=== PATIENT | female | born 1950 | race African-American/Black ===

== ENCOUNTER → 2017-01-08 | Outpatient (CLI) | payer MEDICARE ==
[2015-07-29 10:57] VITALS: BP 129/53
[~2017-01-08] MED LIST: ALPR0.254 PO; CYCL10TA2 PO; CYCL7.5T PO; FURO-68 PO; FURO-69 PO; HYDR-2678 PO; LEVO500T38 PO; LIDO700A4 TP; METO2.5T5 PO; METR500T PO; POTA10TA PO; POTA20TA84 PO; SPIR25TA PO; SPIR50TA2 PO; TIZA2CAP PO
--- NOTE | 2017-01-08 16:06 | RAD ---
DATE: 01/08/2017 EXAM: DIGITAL SCREEN BILAT W/CAD HISTORY: Routine screening COMPARISON: 11/09/2012 This study was interpreted with the benefit of Computerized Aided Detection (CAD). FINDINGS: There are scattered fibroglandular densities in the breasts. There is a stable nodule in the lateral aspect of the right breast. No new or enlarging breast densities are seen. Benign type calcifications are evident. No suspicious microcalcifications have developed. IMPRESSION: Stable mammograms without evidence of malignancy. BI-RADS CATEGORY: 2 BENIGN FINDING(S) RECOMMENDED FOLLOW-UP: 12M 12 MONTH FOLLOW-UP PQRS compliance statement: Patient information was entered into a reminder system with a target due date for the next mammogram. Mammography is a sensitive method for finding small breast cancers, but it does not detect them all and is not a substitute for careful clinical examination. A negative mammogram does not negate a clinically suspicious finding and should not result in delay in biopsying a clinically suspicious abnormality. "Our facility is accredited by the [employer] Mammography Program."
== END | disposition home or self-care (01) ==
LOC: MAMMO 15:20
PROVIDERS: ATTEND Pediatrics
DX: Z12.31 Encounter for screening mammogram for malignant neoplasm of breast (principal)
CPT/HCPCS: G0202; 77067

== ENCOUNTER 2017-11-14 12:02 | Emergency (ER) | payer OTHER ==
[2017-11-14] MEDS: ONDANSETRON ODT 4 MG TAB.RAPDIS. PO ×2 (12:48)
[2017-11-14] MEDS: ACETAMINOPHEN 500 MG TABLET PO ×2 (12:48)
[2017-11-14 13:40] LABS: AGAP ISTAT 18 mmol/L (6-14); BUN ISTAT 14 mg/dL (8-26); CHLORIDE ISTAT 101 mmol/L (98-110); CREATININE ISTAT 0.9 mg/dL (0.5-1.4); GLUCOSE ISTAT 145 mg/dL (70-99); HEMATOCRIT ISTAT 38 % (36-40); HEMOGLOBIN ISTAT 12.9 g/dL (12-15); ION CA ISTAT 1.13 mmol/L (1.13-1.32); POTASSIUM ISTAT 3.8 mmol/L (3.5-5.0); SODIUM ISTAT 139 mmol/L (135-145); TOT CO2 ISTAT 24 mmol/L (23-32)
== END 2017-11-14 13:58 | disposition home or self-care (01) ==
LOC: ER 12:02
DX: R51 Headache (principal); E87.8 Other disorders of electrolyte and fluid balance, not elsewhere classified; I10 Essential (primary) hypertension; E11.9 Type 2 diabetes mellitus without complications; F32.9 Major depressive disorder, single episode, unspecified; Z88.2 Allergy status to sulfonamides; Z88.5 Allergy status to narcotic agent; Z88.8 Allergy status to other drugs, medicaments and biological substances
CPT/HCPCS: 36415; 70450; 80047; 85014; 85018; 93005; 99284-25; Q0162

== ENCOUNTER → 2017-12-01 | Outpatient (CLI) | payer OTHER ==
[2017-12-01] MEDS: IOHEXOL 300 MG/ML 100ML VIAL. IV ×2 (15:40)
== END | disposition home or self-care (01) ==
LOC: US 14:57
DX: K76.0 Fatty (change of) liver, not elsewhere classified (principal); R91.8 Other nonspecific abnormal finding of lung field; R16.0 Hepatomegaly, not elsewhere classified; Z87.891 Personal history of nicotine dependence
CPT/HCPCS: 71260; 76700; Q9967

== ENCOUNTER → 2018-01-11 | Outpatient (CLI) | payer OTHER | END | disposition home or self-care (01) | LOC: MAMMO 12:48 | DX: Z12.31 Encounter for screening mammogram for malignant neoplasm of breast (principal) | CPT/HCPCS: 77067 ==

== ENCOUNTER → 2018-09-28 | Outpatient (CLI) | payer OTHER ==
[2017-11-14 12:11] VITALS: BP 129/82
[~2018-09-28] MED LIST changes: -LEVO500T38 PO; +LEVO500T59 PO; -SPIR50TA2 PO; +SPIR50TA4 PO
--- NOTE | 2018-09-28 16:13 | RAD ---
Examination: CT chest without contrast HISTORY: History of lung nodule follow-up COMPARISON: 12/01/2017 TECHNIQUE: Axial CT images of chest were performed without contrast. Coronal and sagittal reformats are performed. Exposure: One or more of the following individualized dose reduction techniques were utilized for this examination: 1. Automated exposure control 2. Adjustment of the mA and/or kV according to patient size 3. Use of iterative reconstruction technique FINDINGS: The visualized thyroid gland grossly appears unremarkable. The central airways are patent. The heart size grossly appears unremarkable. Coronary artery calcifications identified. There is a 7 mm nodule identified in the left upper lobe of the lung, similar to prior exam. There is a small 5 mm pleural-based nodule identified in the left lower lobe of the lung. There is a 5 mm nodule identified in the right middle lobe of the lung. No evidence of pleural effusion or pneumothorax. There is diffuse decreased attenuation noted in the liver likely hepatic steatosis. The visualized spleen, adrenals grossly appears unremarkable. Mild degenerative changes thoracic spine. IMPRESSION: 1. Bilateral lung nodules with the largest measuring 7 mm in the left upper lobe of the lungs similar to prior exam. 2. Hepatic steatosis. 3. Coronary artery calcifications. Electronically signed by: Edy Bucio MD (09/28/2018 4:10 PM) [id number]
== END | disposition home or self-care (01) ==
LOC: CT 15:41
PROVIDERS: ATTEND Family Medicine
DX: K76.0 Fatty (change of) liver, not elsewhere classified (principal); I25.10 Atherosclerotic heart disease of native coronary artery without angina pectoris; R91.8 Other nonspecific abnormal finding of lung field
CPT/HCPCS: 71250

== ENCOUNTER 2019-01-24 01:10 | Inpatient (IN) | payer MEDICARE ==
[~2019-01-24] VITALS: Ht 175.3 cm; Wt 92.1 kg
[2019-01-24] MEDS ORDERED: ASPIRIN 325 MG TABLET PO ONE (01:30)
[2019-01-24 01:38] LABS: BASO # 0.1 x10^3/uL (0.0-0.2); BASO % 1 % (0-3); EOS # 0.1 x10^3/uL (0.0-0.7); EOS % 1 % (0-3); HEMATOCRIT 38.6 % (36.0-47.0); HEMOGLOBIN 12.9 g/dL (12.0-15.5); LYMPH # 3.2 x10^3/uL (1.0-4.8); LYMPH % 31 % (24-48); MEAN CORPUSCULAR HEMOGLOBIN 28 pg (25-35); MEAN CORPUSCULAR HGB CONC 33 g/dL (31-37); MEAN CORPUSCULAR VOLUME 83 fL (79-100); MONO # 0.6 x10^3/uL (0.0-1.1); MONO % 6 % (0-9); NEUT # 6.3 x10^3uL (1.8-7.7); NEUT % 61 % (31-73); PLATELET COUNT 277 x10^3/uL (140-400); RED BLOOD COUNT 4.63 x10^6/uL (3.50-5.40); RED CELL DISTRIBUTION WIDTH 15.5 % (11.5-14.5); WHITE BLOOD COUNT 10.4 x10^3/uL (4.0-11.0)
[2019-01-24 01:47] LABS: PROTHROMBIN TIME PATIENT 12.9 SEC (11.7-14.0)
[2019-01-24 01:48] LABS: CALCIUM 8.6 mg/dL (8.5-10.1); GFR 66.9; POTASSIUM 3.6 mmol/L (3.5-5.1)
[2019-01-24 01:53] LABS: ALBUMIN 3.7 g/dL (3.4-5.0); ALBUMIN/GLOBULIN RATIO 0.9 (1.0-1.7); MAGNESIUM 1.9 mg/dL (1.8-2.4); TOTAL BILIRUBIN 0.4 mg/dL (0.2-1.0); TOTAL PROTEIN 7.7 g/dL (6.4-8.2)
[2019-01-24] MEDS ORDERED: DEXTROSE 50% 25 GM / 50ML DISP.SYRIN. IV PRN (02:00)
[2019-01-24] MEDS ORDERED: ONDANSETRON PF 4 MG/2 ML VIAL. IV PRN (02:00)
[2019-01-24] MEDS ORDERED: fentaNYL PF VIAL 100 MCG/2 ML VIAL IV PRN (02:00)
--- NOTE | 2019-01-24 02:07 | PHYS DOC ---
Past Medical History Past Medical History: Depression, Diabetes-Type II, GERD, High Cholesterol, Hypertension, Other Additional Past Medical Histor: Syncope Past Surgical History: Hysterectomy, Other Additional Past Surgical Histo: carpal tunnel, ganglion cyst Alcohol Use: None Drug Use: None Adult General Chief Complaint Chief Complaint: CHEST PAIN HPI HPI Patient is a 68 year old female with previous history of DVT who presents with chest pain. The chest pain is located substernally and radiates into her left arm. She describes it as sharp in nature and rates it as a 5/10 right now. She says the pain has been intermittent throughout the day, but cannot pinpoint anything that makes her pain worse or better. She attempted to take a muscle relaxant this evening, but it did not relieve her pain. Patient denies any dizziness, nausea, vomiting, unilateral leg swelling, pleuritic chest pain, or shortness of breath. Denies trauma. Denies fever/chills. Review of Systems Review of Systems Constitutional: Denies fever or chills [] Eyes: Denies redness or eye pain [] HENT: Denies nasal congestion or sore throat [] Respiratory: Denies cough or shortness of breath [] Cardiovascular: Reports sharp substernal chest pain, denies palpitations or irregular heart beats [] GI: Denies abdominal pain, nausea, vomiting [] : Denies dysuria or hematuria [] Musculoskeletal: Denies back pain or joint pain [] Integument: Denies rash or skin lesions [] Neurologic: Denies headache or focal weakness[] Complete systems were reviewed and found to be within normal limits, except as documented in this note. Current Medications Current Medications Current Medications Medications (Trade) Dose Ordered Sig/[facility] Start Time Stop Time Status Last Admin Dose Admin Aspirin (Lobo Aspirin) 325 mg 1X ONCE 01/24/19 01:30 01/24/19 01:31 DC 01/24/19 01:32 325 MG Allergies Allergies Allergies Coded Allergies Type Severity Reaction Last Updated Verified Sulfa (Sulfonamide Antibiotics) Allergy Severe Rash 06/10/14 Yes codeine Allergy Severe itching 07/25/15 Yes warfarin Allergy Intermediate Rash 06/10/14 Yes hydrocodone Allergy Unknown Swelling 07/27/15 Yes Physical Exam Physical Exam Constitutional: No acute distress, non-toxic appearance. [] HENT: Normocephalic, atraumatic, bilateral external ears normal, nose normal. [] Eyes: EOMI, conjunctiva normal, no discharge. [] Neck: Normal range of motion, no tenderness, supple. [] Cardiovascular:Heart rate regular rhythm, no pain with palpation [] Lungs & Thorax: Bilateral breath sounds clear to auscultation, no rhonchi, rales or wheezes [] Abdomen: Soft, no tenderness, no rebound, rigidity, or guarding. [] Skin: Warm, dry, no rash. [] Back: No tenderness, no CVA tenderness. [] Extremities: No cyanosis, no clubbing, trace bilateral pretibial edema. [] Neurologic: Alert and oriented X 3, no focal deficits noted. [] Psychologic: Affect normal, mood normal. [] Current Patient Data Vital Signs Vital Signs Date Time Temp Pulse Resp B/P (MAP) Pulse Ox O2 Delivery O2 Flow Rate FiO2 01/24/19 01:20 98.0 78 20 158/74 (102) 98 Room Air 98.0 Lab Values Laboratory Tests Test 01/24/19 01:27 White Blood Count 10.4 x10^3/uL (4.0-11.0) Red Blood Count 4.63 x10^6/uL (3.50-5.40) Hemoglobin 12.9 g/dL (12.0-15.5) Hematocrit 38.6 % (36.0-47.0) Mean Corpuscular Volume 83 fL (79-100) Mean Corpuscular Hemoglobin 28 pg (25-35) Mean Corpuscular Hemoglobin Concent 33 g/dL (31-37) Red Cell Distribution Width 15.5 % (11.5-14.5) H Platelet Count 277 x10^3/uL (140-400) Neutrophils (%) (Auto) 61 % (31-73) Lymphocytes (%) (Auto) 31 % (24-48) Monocytes (%) (Auto) 6 % (0-9) Eosinophils (%) (Auto) 1 % (0-3) Basophils (%) (Auto) 1 % (0-3) Neutrophils # (Auto) 6.3 x10^3uL (1.8-7.7) Lymphocytes # (Auto) 3.2 x10^3/uL (1.0-4.8) Monocytes # (Auto) 0.6 x10^3/uL (0.0-1.1) Eosinophils # (Auto) 0.1 x10^3/uL (0.0-0.7) Basophils # (Auto) 0.1 x10^3/uL (0.0-0.2) Prothrombin Time 12.9 SEC (11.7-14.0) Prothrombin Time INR 1.0 (0.8-1.1) D-Dimer (Yesica) 0.31 ug/mlFEU (0.00-0.50) Sodium Level 139 mmol/L (136-145) Potassium Level 3.6 mmol/L (3.5-5.1) Chloride Level 101 mmol/L (98-107) Carbon Dioxide Level 28 mmol/L (21-32) Anion Gap 10 (6-14) Blood Urea Nitrogen 22 mg/dL (7-20) H Creatinine 1.0 mg/dL (0.6-1.0) Estimated GFR (Cockcroft-Gault) 66.9 BUN/Creatinine Ratio 22 (6-20) H Glucose Level 160 mg/dL (70-99) H Calcium Level 8.6 mg/dL (8.5-10.1) Magnesium Level 1.9 mg/dL (1.8-2.4) Total Bilirubin 0.4 mg/dL (0.2-1.0) Aspartate Amino Transferase (AST) 16 U/L (15-37) Alanine Aminotransferase (ALT) 30 U/L (14-59) Alkaline Phosphatase 68 U/L (46-116) Creatine Kinase 177 U/L (26-192) Creatine Kinase MB (Mass) 1.3 ng/mL (0.0-3.6) Creatine Kinase MB Relative Index 0.7 % (0-4) Troponin I Quantitative < 0.017 ng/mL (0.000-0.055) QX-Kao-X-Type Natriuretic Peptide 11 pg/mL (0-124) Total Protein 7.7 g/dL (6.4-8.2) Albumin 3.7 g/dL (3.4-5.0) Albumin/Globulin Ratio 0.9 (1.0-1.7) L Lipase 131 U/L (73-393) Laboratory Tests 01/24/19 01:27 Laboratory Tests 01/24/19 01:27 EKG EKG @ 0117 EKG demonstrated sinus rhythm with a rate of 71, no ST elevation or signs of infarction seen. No change from comparison EKG done on 11/14/17 @ 1231 Radiology/Procedures Radiology/Procedures PROCEDURE: CHEST PA & LATERAL EXAM: PA and Lateral Views of the Chest DATE: 01/24/2019 2:03 AM INDICATION: CHEST PAIN. COMPARISON: No Prior FINDINGS: The heart is not enlarged. Mediastinal and hilar contours are normal. No focal parenchymal airspace opacity. No pleural effusion or pneumothorax. The patient's chin obscures a portion of the lung apices. IMPRESSION: 1. No radiographic evidence for acute cardiopulmonary process. Electronically signed by: Louei Grullon MD (01/24/2019 6:39 AM) [facility] Course & Med Decision Making Course & Med Decision Making 68 year old female presented with chest pain. Patient admitted to having intermittent chest pain throughout the day, but denied any significant family history of heart disease. Remote history of DVT. Labs and imaging obtained and posted to the chart. D-dimer and initial troponin were negative. Symptomatic treatment provided with interval improvement. HEART score of 4. Patient requiring admission for further evaluation and treatment. Discussed with Dr. Newberry (aluminum fabrication supervisor for Dr. Ibarra) who is in agreement with admission. Discussed findings and plan with patient and family, who acknowledge understanding and agreement. [] Dragon Disclaimer Dragon Disclaimer This electronic medical record was generated, in whole or in part, using a voice recognition dictation system. Departure Departure Impression: Primary Impression: Chest pain Disposition: ADMITTED INPATIENT Admitting Physician: Chadwick Ramos (on-call for Dr. Ibarra) Condition: STABLE Referrals: Sobia IBARRA MD (PCP) Scripts Simvastatin (SIMVASTATIN) 40 Mg Tablet 1 TAB PO QHS for cholesterol, #90 TAB 1 Refill Prov: Sobia IBARRA MD 01/24/19 Aspirin (ASPIRIN EC) 81 Mg Tablet. 81 MG PO [id number] for heart attack prevention for 30 Days, #30 TAB.SR 11 Refills Prov: Sobia IBARRA MD 01/24/19 Problem Qualifiers Primary Impression: Chest pain Chest pain type: unspecified Qualified Codes: R07.9 - Chest pain, unspecified CHADWICK MYERS DO Jan 24, 2019 02:07
[2019-01-24 03:17] VITALS: BP 117/54
--- NOTE | 2019-01-24 06:42 | RAD ---
EXAM: PA and Lateral Views of the Chest DATE: 01/24/2019 2:03 AM INDICATION: CHEST PAIN. COMPARISON: No Prior FINDINGS: The heart is not enlarged. Mediastinal and hilar contours are normal. No focal parenchymal airspace opacity. No pleural effusion or pneumothorax. The patient's chin obscures a portion of the lung apices. IMPRESSION: 1. No radiographic evidence for acute cardiopulmonary process. Electronically signed by: Louie Grullon MD (01/24/2019 6:39 AM) [facility] [place]
[2019-01-24 07:10] VITALS: BP 115/57
--- NOTE | 2019-01-24 07:33 | EKG ---
[facility] [address] [place] [address] Test Date: 2019-01-24 Test Time: 01:17:51 Pat Name: KEO GANDHI Department: Room: 2 1 Gender: F Dance Artist: : 1950 Requested By: KASHIF MYERS Order Number: [id number] Reading MD: Neil Alberts MD Measurements Intervals [place] Rate: 71 P: 45 TN: 156 QRS: -34 QRSD: 82 T: 29 QT: 402 QTc: 442 Interpretive Statements SINUS RHYTHM LAD NON-SPECIFIC ST/T CHANGES Electronically Signed On 01-24-2019 15:36:25 CDT by Neil Alberts MD
[2019-01-24] MEDS: INSULIN LISPRO 300 UNITS/3 ML INSULN.PEN. SQ SCH ×2 (08:00→12:00)
--- NOTE | 2019-01-24 09:15 | PDOC2 ---
CARDIAC CONSULT DATE OF CONSULT Date of Consult DATE: 01/24/19 TIME: 09:12 REASON FOR CONSULT Reason for Consult: Chest Pain REFERRING PHYSICIAN Referring Physician: Dr. Andino SOURCE Source: Chart review, Patient HISTORY OF PRESENT ILLNESS HISTORY OF PRESENT ILLNESS This is a 68 yo female who presented secondary to chest pain. Patient reports pain began yesterday morning as she sat down in [employer] for service. Located in her left chest. Radiated through to her back and up her left neck. Describes as a dull tightness. Was associated with slight nausea. No dizziness, shortness of breath, or diaphoresis. Pain seemed to worsen throughout the day so she decided to go into the ED for further evaluation and treatment. Reports pain resolved with fentanyl in ED and has not returned. Left chest is tender with palpation. PAST MEDICAL HISTORY Cardiovascular: HTN, Hyperlipidemia Pulmonary: No pertinent hx CENTRAL NERVOUS SYSTEM: Periperal neuropathy GI: GERD Heme/Onc: Other (DVT) Hepatobiliary: No pertinent hx Psych: Anxiety Musculoskeletal: low back pain, Osteoarthritis Infectious disease: No pertinent hx ENT: No pertinent hx Renal/: No pertinent hx Endocrine: No pertinent hx Dermatology: No pertinent hx PAST SURGICAL HISTORY Past Surgical History: Hysterectomy FAMILY HISTORY Family History: Diabetes, Hypertension SOCIAL HISTORY Smoke: Quit ( 1 year ago) ALCOHOL: none Drugs: None Lives: Alone CURRENT MEDICATIONS CURRENT MEDICATIONS Current Medications Medications (Trade) Dose Ordered Sig/Michaela Route PRN Reason Start Time Stop Time Status Last Admin Dose Admin Aspirin (Lobo Aspirin) 325 mg 1X ONCE PO 01/24/19 01:30 01/24/19 01:31 DC 01/24/19 01:32 Ondansetron HCl (Zofran) 4 mg PRN Q8HRS PRN IV NAUSEA/VOMITING 01/24/19 02:00 01/25/19 01:59 01/24/19 02:18 Fentanyl Citrate (Fentanyl 2ml Vial) 25 mcg PRN Q2HR PRN IV PAIN 01/24/19 02:00 01/24/19 02:18 ALLERGIES ALLERGIES: Coded Allergies: Sulfa (Sulfonamide Antibiotics) (Verified Allergy, Severe, Rash, 06/10/14) codeine (Verified Allergy, Severe, itching, 07/25/15) morhpine okay warfarin (Verified Allergy, Intermediate, Rash, 06/10/14) hydrocodone (Verified Allergy, Unknown, Swelling, 10/9/15) morphine okay ROS Review of System 14 point ROS conducted with pertinent positives noted above in HPI. PHYSICAL EXAM General: Alert, Oriented X3, Cooperative, No acute distress HEENT: Mucous membr. moist/pink Lungs: Clear to auscultation, Normal air movement, Other (left chest tenderness upon palpation) Heart: Regular rate, Normal S1, Normal S2, No murmurs Abdomen: No tenderness Extremities: No edema, Normal pulses Skin: No breakdown, No significant lesion Neuro: Normal speech, Sensation intact Psych/Mental Status: Mental status NL, Mood NL MUSCULOSKELETAL: No swelling VITALS VITALS Vital Signs Date Time Temp Pulse Resp B/P (MAP) Pulse Ox O2 Delivery O2 Flow Rate FiO2 01/24/19 07:10 98.1 55 17 115/57 (76) 98 Room Air 98.1 LABS Lab: Laboratory Tests Test 01/24/19 01:27 01/24/19 05:00 White Blood Count 10.4 x10^3/uL (4.0-11.0) Red Blood Count 4.63 x10^6/uL (3.50-5.40) Hemoglobin 12.9 g/dL (12.0-15.5) Hematocrit 38.6 % (36.0-47.0) Mean Corpuscular Volume 83 fL (79-100) Mean Corpuscular Hemoglobin 28 pg (25-35) Mean Corpuscular Hemoglobin Concent 33 g/dL (31-37) Red Cell Distribution Width 15.5 % (11.5-14.5) Platelet Count 277 x10^3/uL (140-400) Neutrophils (%) (Auto) 61 % (31-73) Lymphocytes (%) (Auto) 31 % (24-48) Monocytes (%) (Auto) 6 % (0-9) Eosinophils (%) (Auto) 1 % (0-3) Basophils (%) (Auto) 1 % (0-3) Neutrophils # (Auto) 6.3 x10^3uL (1.8-7.7) Lymphocytes # (Auto) 3.2 x10^3/uL (1.0-4.8) Monocytes # (Auto) 0.6 x10^3/uL (0.0-1.1) Eosinophils # (Auto) 0.1 x10^3/uL (0.0-0.7) Basophils # (Auto) 0.1 x10^3/uL (0.0-0.2) Prothrombin Time 12.9 SEC (11.7-14.0) Prothromb Time International Ratio 1.0 (0.8-1.1) D-Dimer (Yesica) 0.31 ug/mlFEU (0.00-0.50) Sodium Level 139 mmol/L (136-145) Potassium Level 3.6 mmol/L (3.5-5.1) Chloride Level 101 mmol/L (98-107) Carbon Dioxide Level 28 mmol/L (21-32) Anion Gap 10 (6-14) Blood Urea Nitrogen 22 mg/dL (7-20) Creatinine 1.0 mg/dL (0.6-1.0) Estimated GFR (Cockcroft-Gault) 66.9 BUN/Creatinine Ratio 22 (6-20) Glucose Level 160 mg/dL (70-99) Calcium Level 8.6 mg/dL (8.5-10.1) Magnesium Level 1.9 mg/dL (1.8-2.4) Total Bilirubin 0.4 mg/dL (0.2-1.0) Aspartate Amino Transf (AST/SGOT) 16 U/L (15-37) Alanine Aminotransferase (ALT/SGPT) 30 U/L (14-59) Alkaline Phosphatase 68 U/L (46-116) Creatine Kinase 177 U/L (26-192) Creatine Kinase MB (Mass) 1.3 ng/mL (0.0-3.6) Creatine Kinase MB Relative Index 0.7 % (0-4) Troponin I Quantitative < 0.017 ng/mL (0.000-0.055) < 0.017 ng/mL (0.000-0.055) WU-Nmg-I-Type Natriuretic Peptide 11 pg/mL (0-124) Total Protein 7.7 g/dL (6.4-8.2) Albumin 3.7 g/dL (3.4-5.0) Albumin/Globulin Ratio 0.9 (1.0-1.7) Lipase 131 U/L (73-393) Triglycerides Level 129 mg/dL (0-150) Cholesterol Level 246 mg/dL (0-200) LDL Cholesterol, Calculated 159 mg/dL (0-100) VLDL Cholesterol, Calculated 26 mg/dL (0-40) Non-HDL Cholesterol Calculated 185 mg/dL (0-129) HDL Cholesterol 61 mg/dL (40-60) Cholesterol/HDL Ratio 4.0 ECHOCARDIOGRAM ECHOCARDIOGRAM <Conclusion> The left ventricular systolic function is normal and the ejection fraction is 65 % The right ventricle is normal size. The left atrium size is normal. The right atrium size is normal. Doppler and Color Flow revealed no significant aortic regurgitation. Doppler and Color Flow revealed no significant mitral valve regurgitation noted. Doppler and Color Flow revealed no significant tricuspid valve regurgitation noted. Doppler and Color Flow revealed no pulmonic valvular regurgitation. The aortic root is normal in size. There is no evidence of significant pericardial effusion. DATE: 12/02/13 4773 ASSESSMENT/PLAN ASSESSMENT/PLAN 1. Chest pain, mixed features; trop negative x2- AMI ruled out. 2. CAD; coronary calcifications noted on CT chest 09/2018 3. Hypertension; controlled 4. Hyperlipemia 5. H/o tobaccoism; quit w/i last year Recommendations Echo to assess LV systolic function lipids- statin if indicated ASA Given symptomatology and significant cardiac risk factors, will proceed with MPI to r/o ischemia BRYON LO APRN Jan 24, 2019 09:15
--- NOTE | 2019-01-24 10:38 | CARD ---
MR#: [id number] Date of Study: 01/24/2019 Ordering Physician: BRYON LO, Referring Physician: Adriana NYE: Miroslava Pettit ROWAN APPROVED REPORT EXAM: Two-dimensional and M-mode echocardiogram with Doppler and color Doppler. Other Information Quality : AverageHR: 56bpm Rhythm : NSR INDICATION CAD 2D DIMENSIONS Left Atrium(2D)3.1 (1.6-4.0cm)IVSd1.1 (0.7-1.1cm) Aortic Root(2D)2.8 (2.0-3.7cm)LVDd3.9 (3.9-5.9cm) LVOT Diameter2.1 (1.8-2.4cm)PWd1.0 (0.7-1.1cm) LVDs2.8 (2.5-4.0cm)FS (%) 27.7 % SV35.1 mlLVEF(%)54.4 (>50%) M-Mode DIMENSIONS Left Atrium(MM)2.86 (2.5-4.0cm)Aortic Root2.99 (2.2-3.7cm) Aortic Valve AoV Peak Gopi.108.5cm/sAoV VTI24.8cm AO Peak GR.4.7mmHgLVOT Peak Gopi.89.9cm/s AO Mean GR.3mmHgAVA (VMAX)2.76cm2 MITZI (VTI)2.70cm2 Mitral Valve MV E Eeunoalj95.7cm/sMV DECEL [id number] MV A Cdjyebad57.0cm/sE/A Ratio1.5 MV A [id number] Pulmonary Valve PV Peak Smwkqwwr57.7cm/s LEFT VENTRICLE The left ventricle is normal size. Proximal septal thickening is noted. The left ventricular systolic function is normal. The Ejection Fraction is 55-60%. There is normal LV segmental wall motion. Trans mitral Doppler flow pattern is Grade II-pseudonormal filling dynamics. RIGHT VENTRICLE The right ventricle is normal size. There is normal right ventricular wall thickness. The right ventr icular systolic function is normal. ATRIA The left atrium size is normal. The right atrium size is normal. The interatrial septum is intact wit h no evidence for an atrial septal defect or patent foramen ovale as noted on 2-D or Doppler imaging. AORTIC VALVE The aortic valve is normal in structure and function. The aortic valve is trileaflet. Doppler and Col or Flow revealed no significant aortic regurgitation. There is no significant aortic valvular stenosi s. MITRAL VALVE The mitral valve is thickened but opens well. There is no evidence of mitral valve prolapse. There is no mitral valve stenosis. Doppler and Color-flow revealed trace mitral regurgitation. TRICUSPID VALVE The tricuspid valve is normal in structure and function. Doppler and Color Flow revealed no tricuspid valve regurgitation noted. There is no tricuspid valve prolapse or vegetation. There is no tricuspid valve stenosis. PULMONIC VALVE The pulmonic valve is not well visualized. GREAT VESSELS The aortic root is normal in size. The ascending aorta is normal in size. The IVC is normal in size a nd collapses >50% with inspiration. PERICARDIAL EFFUSION There is no evidence of significant pericardial effusion. Critical Notification Critical Value: No <Conclusion> The left ventricular systolic function is normal. The Ejection Fraction is 55-60%. There is normal LV segmental wall motion. Transmitral Doppler flow pattern is Grade II-pseudonormal filling dynamics. Trace mitral regurgitation. There is no evidence of significant pericardial effusion. Signed by : Dillon Rivers, Electronically Approved : 01/24/2019 10:37:57
[2019-01-24] MEDS ORDERED: REGADENOSON 0.4 MG/5 ML DISP.SYRIN. IV ONE (10:45)
--- NOTE | 2019-01-24 13:02 | NUR ---
SW following pt for anticipated dc needs. Chart reviewed and discussed with RN. Pt lives at home alone. RN indicated no skilled needs at this time. No other dc recommendation noted at this time.
[2019-01-24 14:23] VITALS: BP 101/77
--- NOTE | 2019-01-24 14:31 | RAD ---
MR#: [id number] Date of Study: 01/24/2019 Ordering Physician: BRYON LO, Referring Physician: SYLVIA NYE Tech: SOCORRO Marquez APPROVED REPORT Test Type: Pharmacological Stress Nurse/Tech: Zandra Trinidad RN Test Indications: Chest pain Cardiac History: COPD, DM Medications: See Electronic Medical Record Medical History: See Electronic Medical Record Resting ECG: SR Resting Heart Rate: 56 bpm Resting Blood Pressure: 126/61mmHg Pretest Chest Pain: None Nurse/Tech Notes Lungs CTA, S1S2 Consent: The procedure was explained to the patient in lay terms. Informed consent was witnessed. Emmanuel eout was entered into [employer]. History and Stress Test performed by zandra Trinidad RN Pharm. Details Pharmacologic stress testing was performed using 0.4mg per 5ml of regadenoson given intravenously ove r 7-10 seconds. Stress Symptoms No chest pain or symptoms. POST EXERCISE Reason for Termination: Infusion complete Max HR: 77 bpm Max Blood Pressure: 129/60mmHg Blood Pressure response to exercise: Normal blood pressure response during stress. Heart Rate response to exercise: normal response Chest Pain: No. Arrhythmia: No. ST Change: No. INTERPRETATION Stress EKG Conclusion: The resting EKG shows a sinus rhythm with slight nonspecific ST-T wave changes . The stress EKG shows no significant changes from baseline. No EKG evidence of stressed induced ischemia. Imaging Protocol IMAGE PROTOCOL: Rest Tc-99m/stress Tc-99m 1 day Rest: Stress: Viability: Radiopharm.Tc99m MjpmtdtbbKx36q Sestamibi Gqdr00eQj 33mCi Duration 16min. 13min. Img Date 01/24/2019 01/24/2019 Inj-Img Tqeu99sru. 60min. Rest Admin Site:IV - Right ForearmAdministrator:SOCORRO Marquez Stress Admin Site: IV - Right ForearmAdministrator: FRED Garland, ARRT (R)(N) STRESS DATA End Diast. Vol.75.0mlLVEDV index BSA36.0ml End Syst. Vol.17.0mlLVESV index BSA8.0ml Myocardial Gfzy886.0gEject. Cqwrirox15.0% Stress Scores Regional WT0.00Summed WT3.00 Regional WM0.00Summed WM0.00 LV Perfusion The stress scans showed mild inferior wall thinning. The rest scans showed mild inferior wall thinning. Nuclear imaging shows no significant reversible ischemia. Nuclear imaging shows mild fixed inferior wall thinning with normal LV function consistent with diaph ragmatic attenuation. Wall Motion Left ventricular systolic function is normal with an ejection fraction of greater than 70%. LV Perf. Quant 17 Seg. SSS8.00 17 Seg. SRS7.00 17 Seg. SDS1.00 Stress Defect Extent (% LAD)3.10Rest Defect Extent (% LAD)1.90Rev. Defect Extent (% LAD)0.60 Stress Defect Extent (% LCX) 40.00Rest Defect Extent (% LCX)37.50Rev. Defect Extent (% LCX)0.00 Stress Defect Extent (% RCA)5.60Rest Defect Extent (% RCA)4.40Rev. Defect Extent (% RCA)0.00 Stress Defect Extent (% JIN)15.70Rest Defect Extent (% JIN)12.00Rev. Defect Extent (% JIN)2.80 Conclusion 1. No EKG evidence of stressed induced ischemia. 2. Nuclear imaging shows no significant reversible ischemia. 3. Nuclear imaging shows fixed mild inferior wall thinning consistent with an attenuation defect. 4. Normal left ventricular systolic function with no regional wall motion abnormalities. 5. Moderately low risk Lexiscan nuclear stress test with no significant reversible ischemia and cornelio l systolic function. Signed by : Jag Lopez MD Electronically Approved : 01/24/2019 14:30:48
[2019-01-24] MEDS ORDERED: ZOLP5TAB PO (15:27)
[2019-01-24] MEDS ORDERED: SIMV10TA3 PO (15:27)
[2019-01-24] MEDS ORDERED: HYDR-2145 PO (15:27)
[2019-01-24] MEDS ORDERED: METF500T9 PO (15:27)
[2019-01-24] MEDS ORDERED: LOSA25TA54 PO (15:27)
[2019-01-24] MEDS ORDERED: SIMV40TA3 PO (15:57)
[2019-01-24] MEDS ORDERED: ASPI-612 PO (15:57)
--- NOTE | 2019-01-24 16:21 | PDOC3 ---
DATE OF ADMISSION Date of Admission 01/24/19 DATE OF DISCHARGE Discharge Date 01/24/19 PROBLEM LIST Problems: (1) Chest pain CONSULTS Consults cardiology PROCEDURES Procedures echo, spect MPI LABS Labs Laboratory Tests Test 01/24/19 01:27 01/24/19 05:00 01/24/19 08:00 01/24/19 11:16 White Blood Count 10.4 x10^3/uL (4.0-11.0) Red Blood Count 4.63 x10^6/uL (3.50-5.40) Hemoglobin 12.9 g/dL (12.0-15.5) Hematocrit 38.6 % (36.0-47.0) Mean Corpuscular Volume 83 fL (79-100) Mean Corpuscular Hemoglobin 28 pg (25-35) Mean Corpuscular Hemoglobin Concent 33 g/dL (31-37) Red Cell Distribution Width 15.5 % (11.5-14.5) Platelet Count 277 x10^3/uL (140-400) Neutrophils (%) (Auto) 61 % (31-73) Lymphocytes (%) (Auto) 31 % (24-48) Monocytes (%) (Auto) 6 % (0-9) Eosinophils (%) (Auto) 1 % (0-3) Basophils (%) (Auto) 1 % (0-3) Neutrophils # (Auto) 6.3 x10^3uL (1.8-7.7) Lymphocytes # (Auto) 3.2 x10^3/uL (1.0-4.8) Monocytes # (Auto) 0.6 x10^3/uL (0.0-1.1) Eosinophils # (Auto) 0.1 x10^3/uL (0.0-0.7) Basophils # (Auto) 0.1 x10^3/uL (0.0-0.2) Prothrombin Time 12.9 SEC (11.7-14.0) Prothromb Time International Ratio 1.0 (0.8-1.1) D-Dimer (Yesica) 0.31 ug/mlFEU (0.00-0.50) Sodium Level 139 mmol/L (136-145) Potassium Level 3.6 mmol/L (3.5-5.1) Chloride Level 101 mmol/L (98-107) Carbon Dioxide Level 28 mmol/L (21-32) Anion Gap 10 (6-14) Blood Urea Nitrogen 22 mg/dL (7-20) Creatinine 1.0 mg/dL (0.6-1.0) Estimated GFR (Cockcroft-Gault) 66.9 BUN/Creatinine Ratio 22 (6-20) Glucose Level 160 mg/dL (70-99) Calcium Level 8.6 mg/dL (8.5-10.1) Magnesium Level 1.9 mg/dL (1.8-2.4) Total Bilirubin 0.4 mg/dL (0.2-1.0) Aspartate Amino Transf (AST/SGOT) 16 U/L (15-37) Alanine Aminotransferase (ALT/SGPT) 30 U/L (14-59) Alkaline Phosphatase 68 U/L (46-116) Creatine Kinase 177 U/L (26-192) Creatine Kinase MB (Mass) 1.3 ng/mL (0.0-3.6) Creatine Kinase MB Relative Index 0.7 % (0-4) Troponin I Quantitative < 0.017 ng/mL (0.000-0.055) < 0.017 ng/mL (0.000-0.055) < 0.017 ng/mL (0.000-0.055) FF-Fim-P-Type Natriuretic Peptide 11 pg/mL (0-124) Total Protein 7.7 g/dL (6.4-8.2) Albumin 3.7 g/dL (3.4-5.0) Albumin/Globulin Ratio 0.9 (1.0-1.7) Lipase 131 U/L (73-393) Triglycerides Level 129 mg/dL (0-150) Cholesterol Level 246 mg/dL (0-200) LDL Cholesterol, Calculated 159 mg/dL (0-100) VLDL Cholesterol, Calculated 26 mg/dL (0-40) Non-HDL Cholesterol Calculated 185 mg/dL (0-129) HDL Cholesterol 61 mg/dL (40-60) Cholesterol/HDL Ratio 4.0 Glucose (Fingerstick) 117 mg/dL (70-99) MEDICATIONS Medications Medications reviewed and reconciled for discharge. CHEIF COMPLAINT Cheif Complaint She was at [employer] and experienced chest pain radiating to left jaw, she drove herself home and tried some home remedies for it but it persisted, returned and she had a friend take her to the ER. She has not had a prior cardiac history other than hypertension. She is on a statin for hyperlipidemia and takes it routinely. She has a 1+ year hx of type 2 diabetes which has been controlled with metformin. She has been more physically active recently after getting a cortisone shot in her knees but not had other episodes of exertion related chest pain. She had a CT cheat earlier this yr to f/u a pulmonary nodule ( unchanged so likely benign) but noted to have coronary artery calcifications. She has OA of the knees and last month had a cortisone shot in both knees and has been ambulating more since then PAST MEDICAL HISTORY PMH HTN OA knees HLP Type 2 diabetes without complications seasonal allergic rhinitis hx of depression and anxiety mild intermittent asthma PAST SURGICAL HISTORY PSH Hyst/BSO wisdom teeth 2016 carpal tunnel cyst removal left hand "04 SOCIAL HISTORY SH former smoker rare alcohol lives alone FAMILY HISTORY FH mother - - age 86 - glaucoma, renal disease, diverticulitis 2 brothers, 3 sisters (1 ) father - unknown ALLERGIES Allergies Allergies Coded Allergies Type Severity Reaction Last Updated Verified Sulfa (Sulfonamide Antibiotics) Allergy Severe Rash 06/10/14 Yes codeine Allergy Severe itching 07/25/15 Yes warfarin Allergy Intermediate Rash 06/10/14 Yes hydrocodone Allergy Unknown Swelling 07/27/15 Yes MEDICATIONS Meds Medications reviewed. REVIEW OF SYSTEMS ROS A 14 point ROS was completed with the following noted as positive: Other systems reviewed and negative. PHYSICAL EXAM Subjective see above under chief complaint Objective NAD, affect flat, looks tired HEENT: unremarkable Neck: no JVD Heart: RRR without murmur, normal S1, S2 Lungs: CTAB Abd: soft and non tender, obese, normal bowel sounds Neuro: non focal Skin: good turgor MS: no reproducible tenderness Vital Signs Vital Signs Date Time Temp Pulse Resp B/P (MAP) Pulse Ox O2 Delivery O2 Flow Rate FiO2 01/24/19 14:23 97.7 68 18 101/77 (85) 99 Room Air 97.7 Assessment chest pain - risk factors of HTN, HLP, type 2 diabetes, sedentary, known coronary calcification on CT imaging, [facility] NOTE [facility] Note She was brought into the hospital, her initial enzymes and EKG were not suggestive of AMI but due to the type of pain she had and risk factors serial enzymes were done and stress testing was done and echo done but no sign of reversible cardiac ischemia was found. Cardiology saw her in consultation. She tolerated her lunch after the stress testing without ant GERD symptoms. It is felt her pain was anginal due to her known coronary calcific disease. She is started on a baby aspirin and her simvastatin is increased from 10 mg to 40 mg one q hs FOLLOW UP F/U 1-2 weeks DISPOSITION Dispo home Problem Qualifiers (1) Chest pain: Chest pain type: other chest pain Qualified Codes: R07.89 - Other chest pain Sobia MAN MD Jan 24, 2019 16:21
--- NOTE | 2019-01-24 16:35 | NUR ---
Patient discharged to home. Discharge instructions, medications, and follow up appointments discussed with patient. Patient verbalized understanding. Discharge papers given to patient. Prescription called into [facility] pharmacy. IV discontinued. Patient assisted out in wheelchair with staff at this time. Patients family here to get her.
[2019-01-25] MEDS ORDERED: ASPIRIN ENTERIC COATED 81 MG TABLET.DR. PO SCH (08:00)
== END 2019-01-24 17:04 | disposition home or self-care (01) | DRG 303 ==
LOC: ER 01:10 → 6 SOUTH 01:48
PROVIDERS: ADMIT Family Medicine; ATTEND Family Medicine
DX: I25.119 Atherosclerotic heart disease of native coronary artery with unspecified angina pectoris (principal); F32.9 Major depressive disorder, single episode, unspecified; F41.9 Anxiety disorder, unspecified; K21.9 Gastro-esophageal reflux disease without esophagitis; E78.00 Pure hypercholesterolemia, unspecified; I10 Essential (primary) hypertension; E11.42 Type 2 diabetes mellitus with diabetic polyneuropathy; M17.0 Bilateral primary osteoarthritis of knee; E78.5 Hyperlipidemia, unspecified; J45.20 Mild intermittent asthma, uncomplicated; E66.9 Obesity, unspecified; Z90.710 Acquired absence of both cervix and uterus; Z86.718 Personal history of other venous thrombosis and embolism; Z88.5 Allergy status to narcotic agent; Z88.2 Allergy status to sulfonamides; Z88.8 Allergy status to other drugs, medicaments and biological substances; Z82.49 Family history of ischemic heart disease and other diseases of the circulatory system; Z83.3 Family history of diabetes mellitus; Z87.891 Personal history of nicotine dependence; Z68.30 Body mass index [BMI] 30.0-30.9, adult
CPT/HCPCS: 36415; 71046; 78452; 80053; 80061; 82553; 82962; 83690; 83735; 83880; 84484; 85025; 85379; 85610; 93005; 93017; 93306; 96374; 96375; A9500; J1815; J2405; J2785; J3010; 99285-25

== ENCOUNTER → 2019-12-07 | Outpatient (CLI) | payer OTHER ==
[~2019-12-07] MED LIST changes: +ASPI-612 PO; +HYDR-2145 PO; +LOSA25TA54 PO; +METF500T11 PO; +SIMV10TA15 PO; +SIMV40TA18 PO; +ZOLP5TAB PO
--- NOTE | 2019-12-07 16:08 | RAD ---
EXAM: Skull, 4 views. HISTORY: Headache. COMPARISON: None. FINDINGS: 4 views of the skull are obtained. There is no fracture, dislocation or subluxation. No lytic or sclerotic osseous lesion is seen. The paranasal sinuses are clear. There is no significant nasal septal deviation. IMPRESSION: No acute osseous finding. Electronically signed by: Yanelis Melgar MD (12/07/2019 4:05 PM) [facility] [place]
== END | disposition home or self-care (01) ==
LOC: RAD 10:01
PROVIDERS: ATTEND Nurse Practitioner Gerontology
DX: R51 Headache (principal); G89.29 Other chronic pain
CPT/HCPCS: 70260

== ENCOUNTER → 2020-02-03 | Outpatient (CLI) | payer OTHER ==
--- NOTE | 2020-02-03 11:11 | RAD ---
LUMBAR SPINE MIN 4V History: Lumbar back pain Comparison: None. Findings: 5 views of the lumbar spine are submitted. Lumbar vertebral body stature and AP alignment are maintained. There is mild to moderate narrowing of the L5-S1 intervertebral disc space likely in part on developmental basis. No acute osseous abnormality is identified by radiographs. There is facet degenerative change greater inferiorly of the lumbar spine. There is variable retained stool in the colon. Impression: 1. No acute osseous abnormality is identified by radiographs. There is narrowing of the L5-S1 intervertebral disc space although likely in part on developmental basis. Electronically signed by: Napoleon Thomas MD (02/03/2020 11:08 AM) [id number]
== END | disposition home or self-care (01) ==
LOC: RAD 10:22
PROVIDERS: ATTEND Family Medicine
DX: M48.07 Spinal stenosis, lumbosacral region (principal)
CPT/HCPCS: 72110

== ENCOUNTER → 2020-04-19 | Outpatient (CLI) | payer OTHER ==
[~2020-04-19] MED LIST changes: -ASPI-612 PO; +ASPI-886 PO; +METF-658 PO; -METF500T11 PO
--- NOTE | 2020-04-19 13:53 | RAD ---
BILATERAL SCREENING MAMMOGRAM History: Routine screening. Comparison: 01/11/2018, 01/08/2017, 01/17/2016, 01/09/2015: 27 and 14, 11/09/2012. Technique: Routine bilateral digital mammogram views were obtained. Findings: Breast Tissue Density B : There are scattered areas of fibroglandular density. There are no dominant masses, suspicious microcalcifications, or architectural distortion. IMPRESSION: No mammographic evidence of malignancy. Recommend routine screening. BI-RADS category 1: Negative. The images were reviewed with computer aided detection. Patient information is entered into the reminder system with a target due date for the next screening mammogram. Mammography is the most sensitive method for finding small breast cancers, but it does not detect them all and is not a substitute for careful clinical examination. A negative mammogram does not negate a clinically suspicious finding and should not result in delay in biopsying a clinically suspicious abnormality. "Our facility is accredited by the [employer] Mammography Program." Electronically signed by: Luis Manuel Noel MD (04/19/2020 1:50 PM) [email or web address]
== END | disposition home or self-care (01) ==
LOC: MAMMO 13:11
PROVIDERS: ATTEND Family Medicine
DX: Z12.31 Encounter for screening mammogram for malignant neoplasm of breast (principal); N64.89 Other specified disorders of breast
CPT/HCPCS: 77067

== ENCOUNTER → 2020-11-21 | Outpatient (CLI) | payer OTHER ==
--- NOTE | 2020-11-21 15:40 | KCIC ---
MR LUMBAR SPINE WO [id number] Date: 11/21/2020 2:15 PM Indication: PUDENDAL NEURALGIA. Pt has tingling and spasms in vaginal region x one month. Comparison: None. Technique: Multi-planar multi-weighted magnetic resonance imaging of the lumbar spine was performed w ithout intravenous contrast using the standard lumbar spine protocol. FINDINGS: The lumbar spine is normally aligned. No acute fracture. Mild multilevel degenerative disc desiccatio n and disc height loss. No marrow replacing process to suggest malignancy. The conus terminates at a normal level. No abnormal signal is seen within the visualized distal spina l cord. No clumping of intrathecal nerve roots. No soft tissue abnormality in the visualized abdomen or pelvis. T12-L1: No disc bulge. Mild facet arthropathy. No significant spinal stenosis or neural foraminal primo rowing. L1-L2: Disc bulge. Mild facet arthropathy. No significant spinal stenosis or neural foraminal narrowi ng. L2-L3: Disc bulge. Mild facet arthropathy. No significant spinal stenosis. Mild left neural foraminal narrowing. L3-L4: Disc bulge. Moderate facet arthropathy. Mild spinal stenosis. Mild bilateral neural foraminal narrowing. L4-L5: Disc bulge with annular tear. Mild facet arthropathy. No spinal stenosis. Mild bilateral neura l foraminal narrowing. L5-S1: No disc bulge. Mild facet arthropathy. No significant spinal stenosis or neural foraminal narr owing. IMPRESSION: Mild lumbar spondylosis, detailed level by level above. Electronically signed by: Napoleon Shaffer MD (11/21/2020 3:38 PM) [facility]
== END ==
LOC: KCIC MRI 13:55
PROVIDERS: ATTEND Nurse Practitioner Gerontology
DX: M47.816 Spondylosis without myelopathy or radiculopathy, lumbar region (principal); M48.061 Spinal stenosis, lumbar region without neurogenic claudication; G58.8 Other specified mononeuropathies
CPT/HCPCS: 72148

== ENCOUNTER → 2020-12-07 | Outpatient (CLI) | payer OTHER ==
--- NOTE | 2020-12-07 17:34 | RAD ---
EXAM: Abdomen sonogram. HISTORY: Pain. TECHNIQUE: Sonographic imaging of the abdomen was performed. COMPARISON: None. FINDINGS: The liver is enlarged. There is hepatic steatosis. No focal hepatic lesion is seen. The com mon bile duct is normal in caliber. The gallbladder is distended and contains sludge. There is no gal lbladder wall thickening or pericholecystic fluid. The kidneys are normal in size. There is no hydron ephrosis. The spleen is normal in size. The pancreas is obscured due to bowel gas. There is aortic at herosclerosis. The inferior vena cava is not well seen due to bowel gas. There is no suspicious sonog raphic finding at the site of reported palpable concern along the midline abdominal wall. IMPRESSION: 1. Hepatomegaly and hepatic steatosis. 2. Distended gallbladder containing sludge. There are no secondary findings to since cholecystitis. 3. Obscured midline structures due to bowel gas. 4. No suspicious sonographic finding at the site of reported palpable concern along the abdominal wal l. Electronically signed by: Yanelis Melgar MD (12/07/2020 5:31 PM) [id number]
== END ==
LOC: US 09:50
PROVIDERS: ATTEND Nurse Practitioner Gerontology
DX: K76.0 Fatty (change of) liver, not elsewhere classified (principal); R16.0 Hepatomegaly, not elsewhere classified; K82.8 Other specified diseases of gallbladder; I70.0 Atherosclerosis of aorta
CPT/HCPCS: 76700

== ENCOUNTER 2021-02-12 14:57 | Emergency (ER) | payer OTHER ==
[~2021-02-12] VITALS: Ht 172.7 cm; Wt 93.6 kg
[2021-02-12] MEDS ORDERED: IV NORMAL SALINE 1000ML BAG 1,000 ML IV ONE (15:45)
[2021-02-12 16:29] LABS: BASO # 0.1 x10^3/uL (0.0-0.2); BASO % 1 % (0-3); EOS # 0.1 x10^3/uL (0.0-0.7); EOS % 2 % (0-3); HEMATOCRIT 37.8 % (36.0-47.0); HEMOGLOBIN 12.8 g/dL (12.0-15.5); LYMPH # 2.7 x10^3/uL (1.0-4.8); LYMPH % 50 % (24-48); MEAN CORPUSCULAR HEMOGLOBIN 28 pg (25-35); MEAN CORPUSCULAR HGB CONC 34 g/dL (31-37); MEAN CORPUSCULAR VOLUME 81 fL (79-100); MONO # 0.3 x10^3/uL (0.0-1.1); MONO % 7 % (0-9); NEUT # 2.1 x10^3/uL (1.8-7.7); NEUT % 40 % (31-73); PLATELET COUNT 248 x10^3/uL (140-400); RED BLOOD COUNT 4.64 x10^6/uL (3.50-5.40); RED CELL DISTRIBUTION WIDTH 15.5 % (11.5-14.5); WHITE BLOOD COUNT 5.3 x10^3/uL (4.0-11.0)
[2021-02-12 17:03] LABS: CALCIUM 8.3 mg/dL (8.5-10.1); CREATININE 0.9 mg/dL (0.6-1.0); GFR 75.1; POTASSIUM 3.3 mmol/L (3.5-5.1)
[2021-02-12 17:09] LABS: ALBUMIN 3.8 g/dL (3.4-5.0); ALBUMIN/GLOBULIN RATIO 1.2 (1.0-1.7); TOTAL BILIRUBIN 0.3 mg/dL (0.2-1.0); TOTAL PROTEIN 7.1 g/dL (6.4-8.2)
[2021-02-12] MEDS ORDERED: IOHEXOL 300 MG/ML 100ML VIAL. ONE (17:25)
[2021-02-12] MEDS ORDERED: IOHEXOL 300 MG/ML 100ML VIAL. IV ONE (17:30)
[2021-02-12] MEDS ORDERED: CONTRAST GIVEN. MC PRN (17:30)
[2021-02-12 17:35] LABS: BILIRUBIN,URINE NEGATIVE (NEG); CLARITY,URINE CLEAR; COLOR,URINE YELLOW; NITRITE,URINE NEGATIVE (NEG); PROTEIN,URINE NEGATIVE (NEG-TRACE); UROBILINOGEN,URINE 0.2 mg/dL (0.2 mg/dL)
[2021-02-12 17:39] LABS: BACTERIA,URINE FEW /HPF (0-FEW); RBC,URINE 0 /HPF (0-2); WBC,URINE OCC /HPF (0-4)
--- NOTE | 2021-02-12 17:52 | RAD ---
Exam: CT of abdomen and pelvis with contrast INDICATION: Lower abdominal pain TECHNIQUE: Sequential axial images through the abdomen and pelvis obtained following the administrati on of 75 mL of Omni 300 IV contrast. Sagittal and coronal reformatted images were reconstructed from the axial data and reviewed. Exposure: One or more of the following in the visualized dose reduction techniques were utilized for this examination: 1. Automated exposure control 2. Adjustment of the MA and/or KV according to patient size 3. Use of iterative of reconstructive technique Comparisons: None FINDINGS: Heart size is normal. No pericardial effusion. Visualized lung bases are clear. No pleural effusion. Diffuse hepatic steatosis. Spleen, pancreas and adrenals are unremarkable. Gallbladder is decompresse d not well evaluated. No perinephric inflammation or hydronephrosis. No renal or ureteral calculi are identified. Bladder is decompressed not well evaluated. Uterus is absent. No abnormal adnexal mass. Diverticulosis noted in the sigmoid colon without evidence of acute diverticulitis. Remainder of the large and small bowel are unremarkable. Appendix is normal. No free intra-abdominal air or fluid. No obstruction. Abdominal aorta has a normal course and caliber. Abdominal vasculature is patent. No enlarged intra-abdominal lymph nodes are identified. No suspicious osseous lesions or acute fractures. IMPRESSION: 1. Mild wall thickening the gallbladder which may be secondary to mildly contracted state. Correlate with symptomatology to determine the need for further evaluation with ultrasound. 2. Otherwise, no acute process identified within the abdomen or pelvis. 3. Diffuse hepatic steatosis. Electronically signed by: Candida Alfaro MD (02/12/2021 5:49 PM) [facility]
--- NOTE | 2021-02-12 18:28 | ED.ADGEN ---
Past Medical History Past Medical History: Depression, Diabetes-Type II, GERD, High Cholesterol, Hypertension, Other Additional Past Medical Histor: Syncope Past Surgical History: Hysterectomy, Other Additional Past Surgical Histo: carpal tunnel, ganglion cyst Smoking Status: Never Smoker Alcohol Use: None Drug Use: None General Adult EDM: Chief Complaint: RECTAL BLEED HPI: HPI: Patient is a 70 year old AA female who presents emergency department with complaints of sharp lower abdominal pain followed by a sudden loose bowel movement just prior to arrival. Patient reports concern because when she wiped herself after the bowel movement there is blood on the toilet paper. She denies any bloody stools, foul-smelling stools, nausea, vomiting, constipation, fever, cough, shortness of breath, dizziness, syncope, dysuria, hematuria, increased urinary frequency, or back pain. Patient reports a history of hemorrhoids but denies any rectal pain, or itching. She currently denies any pain, she reports that the pain was relieved by having a bowel movement. Patient denies any increase in flatulence. Review of Systems: Review of Systems: Complete review of systems is negative unless otherwise documented in the HPI. Current Medications: Current Medications Medications (Trade) Dose Ordered Sig/Michaela Start Time Stop Time Status Last Admin Dose Admin Info (CONTRAST GIVEN -- Rx MONITORING) 1 each PRN DAILY PRN 02/12/21 17:30 02/13/21 00:44 DC Iohexol (Omnipaque 300 Mg/ml) 100 ml STK-MED ONCE 02/12/21 17:25 02/12/21 17:25 DC Sodium Chloride 1,000 ml @ 1,000 mls/hr 1X ONCE 02/12/21 15:45 02/12/21 16:44 DC 02/12/21 16:12 1,000 MLS/HR Allergies: Allergies: Allergies Coded Allergies Type Severity Reaction Last Updated Verified Sulfa (Sulfonamide Antibiotics) Allergy Severe Rash 06/10/14 Yes codeine Allergy Severe itching 07/25/15 Yes warfarin Allergy Intermediate Rash 06/10/14 Yes hydrocodone Allergy Unknown Swelling 07/27/15 Yes Physical Exam: PE: Constitutional: Well developed, well nourished, no acute distress, non-toxic appearance. [] HENT: Normocephalic, atraumatic, bilateral external ears normal, nose normal. [] Eyes: PERRLA, EOMI, conjunctiva normal, no discharge. [] Neck: Normal range of motion, no stridor. [] Cardiovascular:Heart rate regular rhythm Lungs & Thorax: Respirations even and unlabored, no retractions, no respiratory distress Abdomen: soft, lower abdominal TTP bilat, no rebound tenderness,, no guarding, no palpable mass Rectal Exam: Normal tone, No mass, Positive control, no thrombosed hemorrhoids Stool: Mucus Guaiac: Unable to test due to lack of stool collection Skin: Warm, dry, no erythema, no rash. [] Extremities: No cyanosis, ROM intact, no edema. [] Neurologic: Alert and oriented X 3, no focal deficits noted. [] Psychologic: Affect normal, judgement normal, mood normal. [] Current Patient Data: Labs: Laboratory Tests Test 02/12/21 16:08 02/12/21 17:12 White Blood Count 5.3 x10^3/uL (4.0-11.0) Red Blood Count 4.64 x10^6/uL (3.50-5.40) Hemoglobin 12.8 g/dL (12.0-15.5) Hematocrit 37.8 % (36.0-47.0) Mean Corpuscular Volume 81 fL (79-100) Mean Corpuscular Hemoglobin 28 pg (25-35) Mean Corpuscular Hemoglobin Concent 34 g/dL (31-37) Red Cell Distribution Width 15.5 % (11.5-14.5) H Platelet Count 248 x10^3/uL (140-400) Neutrophils (%) (Auto) 40 % (31-73) Lymphocytes (%) (Auto) 50 % (24-48) H Monocytes (%) (Auto) 7 % (0-9) Eosinophils (%) (Auto) 2 % (0-3) Basophils (%) (Auto) 1 % (0-3) Neutrophils # (Auto) 2.1 x10^3/uL (1.8-7.7) Lymphocytes # (Auto) 2.7 x10^3/uL (1.0-4.8) Monocytes # (Auto) 0.3 x10^3/uL (0.0-1.1) Eosinophils # (Auto) 0.1 x10^3/uL (0.0-0.7) Basophils # (Auto) 0.1 x10^3/uL (0.0-0.2) Sodium Level 145 mmol/L (136-145) Potassium Level 3.3 mmol/L (3.5-5.1) L Chloride Level 104 mmol/L (98-107) Carbon Dioxide Level 26 mmol/L (21-32) Anion Gap 15 (6-14) H Blood Urea Nitrogen 13 mg/dL (7-20) Creatinine 0.9 mg/dL (0.6-1.0) Estimated GFR (Cockcroft-Gault) 75.1 BUN/Creatinine Ratio 14 (6-20) Glucose Level 125 mg/dL (70-99) H Calcium Level 8.3 mg/dL (8.5-10.1) L Magnesium Level 2.0 mg/dL (1.8-2.4) Total Bilirubin 0.3 mg/dL (0.2-1.0) Aspartate Amino Transferase (AST) 16 U/L (15-37) Alanine Aminotransferase (ALT) 32 U/L (14-59) Alkaline Phosphatase 65 U/L (46-116) Total Protein 7.1 g/dL (6.4-8.2) Albumin 3.8 g/dL (3.4-5.0) Albumin/Globulin Ratio 1.2 (1.0-1.7) Lipase 126 U/L (73-393) Urine Collection Type Unknown Urine Color Yellow Urine Clarity Clear Urine pH 6.0 (<5.0-8.0) Urine Specific [place] 1.020 (1.000-1.030) Urine Protein Negative mg/dL (NEG-TRACE) Urine Glucose (UA) Negative mg/dL (NEG) Urine Ketones (Stick) Negative mg/dL (NEG) Urine Blood Negative (NEG) Urine Nitrite Negative (NEG) Urine Bilirubin Negative (NEG) Urine Urobilinogen Dipstick 0.2 mg/dL (0.2 mg/dL) Urine Leukocyte Esterase Negative (NEG) Urine RBC 0 /HPF (0-2) Urine WBC Occ /HPF (0-4) Urine Squamous Epithelial Cells Mod /LPF Urine Bacteria Few /HPF (0-FEW) Laboratory Tests 02/12/21 16:08 Laboratory Tests 02/12/21 16:08 Vital Signs: Vital Signs Date Time Temp Pulse Resp B/P (MAP) Pulse Ox O2 Delivery O2 Flow Rate FiO2 02/12/21 19:38 54 17 134/63 (86) 99 Room Air 02/12/21 17:06 98.5 98.5 EKG: EKG: [] Heart Score: C/O Chest Pain: No Risk Scores: Score 0 - 3: 2.5% MACE over next 6 weeks - Discharge Home Score 4 - 6: 20.3% MACE over next 6 weeks - Admit for Clinical Observation Score 7 - 10: 72.7% MACE over next 6 weeks - Early Invasive Strategies Radiology/Procedures: Radiology/Procedures: PROCEDURE: CT ABD PELV W/ IV CONTRST ONLY Exam: CT of abdomen and pelvis with contrast INDICATION: Lower abdominal pain TECHNIQUE: Sequential axial images through the abdomen and pelvis obtained following the administration of 75 mL of Omni 300 IV contrast. Sagittal and coronal reformatted images were reconstructed from the axial data and reviewed. Exposure: One or more of the following in the visualized dose reduction techniques were utilized for this examination: 1. Automated exposure control 2. Adjustment of the MA and/or KV according to patient size 3. Use of iterative of reconstructive technique Comparisons: None FINDINGS: Heart size is normal. No pericardial effusion. Visualized lung bases are clear. No pleural effusion. Diffuse hepatic steatosis. Spleen, pancreas and adrenals are unremarkable. Gallbladder is decompressed not well evaluated. No perinephric inflammation or hydronephrosis. No renal or ureteral calculi are identified. Bladder is decompressed not well evaluated. Uterus is absent. No abnormal adnexal mass. Diverticulosis noted in the sigmoid colon without evidence of acute diverticulitis. Remainder of the large and small bowel are unremarkable. Gisselle endix is normal. No free intra-abdominal air or fluid. No obstruction. Abdominal aorta has a normal course and caliber. Abdominal vasculature is patent. No enlarged intra-abdominal lymph nodes are identified. No suspicious osseous lesions or acute fractures. IMPRESSION: 1. Mild wall thickening the gallbladder which may be secondary to mildly contracted state. Correlate with symptomatology to determine the need for further evaluation with ultrasound. 2. Otherwise, no acute process identified within the abdomen or pelvis. 3. Diffuse hepatic steatosis. Electronically signed by: Candida Alfaro MD (02/12/2021 5:49 PM) [facility] [] Course & Med Decision Making: Course & Med Decision Making Pertinent Labs and Imaging studies reviewed. (See chart for details) 70-year-old female presents emergency department with complaints of sudden onset of lower abdominal pain with a rapid bowel movement. CT the abdomen pelvis revealed diverticulosis without diverticulitis, no acute findings. CBC is unremarkable, CMP also unremarkable, unable to collect stool specimen for fecal occult, rectal exam is unremarkable. UA is not concerning for urinary tract infection. The patient's vital signs are stable throughout emergency department stay. She continued to deny any abdominal pain or rectal bleeding throughout her visit. I discussed these results with the patient and encouraged her to follow-up with her primary care doctor in the next 1 to 2 days, patient states she will follow up. Encouraged patient to return to the ER if her symptoms worsen or fever developed. Patient verbalized an understanding of home care, medications, follow-up, and return to ED instructions and was in agreement with the plan of care. [] Dragon Disclaimer: Dragon Disclaimer: This electronic medical record was generated, in whole or in part, using a voice recognition dictation system. Departure Departure Impression: Primary Impression: Abdominal pain, lower Additional Impression: Rectal bleeding Disposition: 01 HOME / SELF CARE / HOMELESS Condition: STABLE Referrals: Sobia MAN MD (PCP) Patient Instructions: Abdominal Pain (Nonspecific), Rectal Bleeding, [id number] Additional Instructions: Recommend clear fluids for the next 24 hours. Then you may advance to bland foods such as bananas, rice, applesauce, and dry toast. Follow-up with your primary care doctor in the next 1-2 days for re-evaluation. Return to the emergency room if your symptoms worsen or if fever develops. Attending Signature Attending Signature I have participated in the care of this patient and I have reviewed and agree with all pertinent clinical information above including history, exam, and recommendations. Problem Qualifiers IVAN SORENSON APRN Feb 12, 2021 18:28 WERNER CURTIS DO Feb 13, 2021 13:19
[2021-02-12 19:38] VITALS: BP 134/63
== END 2021-02-12 20:26 | disposition home or self-care (01) ==
LOC: ER 14:57
DX: K62.5 Hemorrhage of anus and rectum (principal); R10.30 Lower abdominal pain, unspecified; R19.7 Diarrhea, unspecified; F32.9 Major depressive disorder, single episode, unspecified; E11.9 Type 2 diabetes mellitus without complications; K21.9 Gastro-esophageal reflux disease without esophagitis; E78.00 Pure hypercholesterolemia, unspecified; I10 Essential (primary) hypertension; Z90.710 Acquired absence of both cervix and uterus; Z98.890 Other specified postprocedural states; Z88.2 Allergy status to sulfonamides; Z88.5 Allergy status to narcotic agent; Z88.8 Allergy status to other drugs, medicaments and biological substances
CPT/HCPCS: 36415; 74177; 80053; 81001; 83690; 83735; 85025; 96360; 99285; J7030; Q9967

== ENCOUNTER → 2021-05-02 | Outpatient (CLI) | payer OTHER ==
--- NOTE | 2021-05-02 14:55 | RAD ---
EXAMINATION: MG 2D BILAT SCREENING CLINICAL HISTORY: Screening TECHNIQUE: Digital craniocaudal and mediolateral oblique views of the bilateral breasts obtained. COMPARISON: 01/11/2018, 01/08/2017, 01/17/2016 BREAST COMPOSITION: There are scattered areas of fibroglandular density. FINDINGS: No evidence of suspicious mass, calcifications, or areas of architectural distortion. IMPRESSION: No mammographic evidence of malignancy. BI-RADS ASSESSMENT: Category 1: Negative RECOMMENDATION: Return for routine bilateral screening mammogram in one year. PQRS compliance statement - Patient information was entered into a reminder system with a target due date for the next mammogram. "Our facility is accredited by the [employer] Mammography Program." Electronically signed by: Layo Ramsey DO (05/02/2021 2:53 PM) [id number]
== END ==
LOC: MAMMO 13:49
PROVIDERS: ATTEND Family Medicine
DX: Z12.31 Encounter for screening mammogram for malignant neoplasm of breast (principal)
CPT/HCPCS: 77067

== ENCOUNTER → 2021-08-07 | Outpatient (CLI) | payer OTHER ==
--- NOTE | 2021-08-07 16:37 | RAD ---
XR RIBS MIN 3 VIEWS LT W/PA CHEST History: Reason: INTERCOSTAL PAIN, LEFT SIDED MID CHEST PAIN, NO TRAUMA / Spl. Instructions: / Hist ory: Technique: AP view the chest and 4 views of the left ribs. Comparison: None. Findings: No consolidation or pleural effusion. No pneumothorax. Normal heart size. No displacement rib fractur es. Mild left glenohumeral DJD. Benign-appearing sclerotic lesion within the left proximal humerus. Impression: 1. No acute cardiopulmonary process. No displaced rib fractures. Electronically signed by: Uri Eisenberg DO (08/07/2021 4:35 PM) [id number]
== END ==
LOC: RAD 12:37
PROVIDERS: ATTEND Family Medicine
DX: R07.82 Intercostal pain (principal); M19.012 Primary osteoarthritis, left shoulder
CPT/HCPCS: 71101